=== PATIENT | female | born 1980 | race Caucasian/White ===

== ENCOUNTER 2024-10-13 16:19 | Emergency (ER) | payer OTHER, SELFPAY ==
[2024-10-13 16:22] VITALS: BP 161/108
[2024-10-13 17:35] VITALS: BMI 25.4
[2024-10-13 17:36] VITALS: BP 135/98
--- NOTE | 2024-10-13 17:39 | ED.GENMED ---
History of Present Illness
General
Chief Complaint: Abnormal Lab Value
Source: patient
Exam Limitations: none
Time Seen by Provider: 10/13/24 17:30
Nursing documentation reviewed up to this point in time: agreed with
History of Present Illness
History of Present Illness:
44-year-old female with no significant past medical history states she saw her PCP 2 days ago and had blood work drawn. She states she has had increased thirst and urination since past 2 months, and in the past 2 weeks had calf cramping, she had
difficulty constipation, mild blurred vision, feels a 'bubble' in her mid chest with increased belching lately, she has been fatigued. She has lost 14 pounds in the past 5 months, 6 pounds since July. She has been eating well and drinking more
than usual. She got the results of her blood work today and she states it showed hemoglobin A1c of 14, she was called by her PCP from [facility] and they discussed starting her on basal insulin for type 2 diabetes but when she
described her symptoms they told her to come here for evaluation.
Past History
Past History
ED Past Medical History: None
ED Past Surgical History: None
Social History
Tobacco: Non-smoker
Alcohol: Occasional
Personal:
Living: with family
Employment: Employed
Review of Systems
Review of Systems
Allergies reviewed?: Yes
All Other Systems: ROS reviewed and negative except as documented in HPI and ROS
Constitutional: Reports fatigue
EENT: Reports other (Mild blurry vision)
ABD/GI: Reports other (Polydipsia)
: Reports other (Polyuria)
Neurological: Reports other (Difficulty concentrating recently)
Phy Exam
Physical Exam
Physical Exam:
GENERAL: No acute distress. A&Ox3.
CONSTITUTIONAL: Afebrile.
EYES: clear, conjunctivae normal
ENMT: moist mucus membranes, Pharynx nl
RESPIRATORY: Regular respirations, nonlabored, lungs clear.
CARDIOVASCULAR: Regular rate and rhythm, no murmurs, no rubs.
GI: Soft, nontender, normal BS
MUSCULOSKELETAL: Moves with ease. Well perfused.
SKIN: Warm, dry, pink
PSYCH: Normal mood and affect. Well kept, interactive and appropriate
NEUROLOGIC: Awake, alert and oriented. No focal neurological deficits
Course
Orders/Labs/Results
Orders:
Orders
10/13/24 17:39
Electrocardiogram (*1) Urgent
Reason for Study: Fatigue / Weakness
EKG- Treatment ONCE
0.9% Sodium Chloride 1000 ml [Nss] 1,000 ml IV BOLUS
10/13/24 18:03
Urinalysis Reflex To Culture Urgent
Date Specimen was Collected: 10/13/24
Time Specimen was Collected: 18:01
Urine Microscopic Reflex Cult Urgent
10/13/24 18:39
Complete Blood Count/With Diff Urgent
Comprehensive Metabolic Panel Urgent
TSH Reflex To Free T4 Urgent
10/13/24 20:14
METFORMIN HCl [Glucophage] 500 mg PO NOW STA
Abnormal Lab Results
10/13/24 10/13/24 10/13/24
18:03 18:39 20:26
Absolute Monos (auto) 0.7 H 10^3/uL
(0.1-0.6)
Absolute Eos (auto) 1.2 H 10^3/uL
(0-0.7)
Eosinophils % 14.3 H %
(0-6)
Creatinine 0.4 L mg/dL
(0.6-1.0)
Glucose 255 H mg/dl
(70-99)
Urine Ketones 3+ A
(Negative)
Urine Bacteria (Reflex) Few A
(Negative)
Urine Glucose 4+ A
(Negative)
Urine Albumin (Reflex) 1+ A
(Neg - Trace)
POC Glucose 196 H mg/dl
(70-99)
10/13/24 18:39
10/13/24 18:39
Vital Signs
Initial and Last Documented VS:
Initial Vital Signs
Temp Pulse Resp BP Pulse Ox
98.9 F 111 18 161/108 100
10/13/24 16:22 10/13/24 16:22 10/13/24 16:22 10/13/24 16:22 10/13/24 16:22
Last Documented Vital Signs
Temp Pulse Resp BP Pulse Ox
98.9 F 100 15 116/90 100
10/13/24 16:22 10/13/24 20:30 10/13/24 20:30 10/13/24 20:24 10/13/24 20:30
MDM/Problems Addressed
Differential Diagnosis Includes:
DM, DKA,
MDM/Problems Addressed:
44-year-old female with no significant past medical history states she saw her PCP 2 days ago and had blood work drawn. She states she has had increased thirst and urination since past 2 months, and in the past 2 weeks had calf cramping, she had
difficulty constipation, mild blurred vision, feels a 'bubble' in her mid chest with increased belching lately, she has been fatigued. She has lost 14 pounds in the past 5 months, 6 pounds since July. She has been eating well and drinking more
than usual. She got the results of her blood work today and she states it showed hemoglobin A1c of 14, she was called by her PCP from [facility] and they discussed starting her on basal insulin for type 2 diabetes but when she
described her symptoms they told her to come here for evaluation.
6:45 PM:
CBC normal
UA: 3+ ketones, 4+ glucose, 1+ albumin otherwise negative
CMP: Glucose 255 otherwise normal
Plan: Start Metformin and contact PCP in a.m.
*EKG
EKG Intrepretation Date: 10/13/24
Interpretation: normal
Heart Rate: 91
Rate: normal
Rhythm: sinus
Plato: normal axis
Interval: normal interval
QRS Pattern: normal QRS
Ischemia: no ischemia
*Critical Care Note
Total Time (30-74mins, 75-104mins- exclusive of procedures): Not Applicable
ED Attending Note
-
Portions of this chart may have been created with voice recognition software.� Occasional wrong word or��sound alike� substitutions may have occurred due to the inherent limitations of voice recognition software.
Discharge Plan
Departure
Patient Disposition: Home (Routine Discharge)
Date of Disposition: 10/13/24
Time of Disposition: 20:15
Patient with high blood pressure during this ER visit?: No
Condition: Good
Discharge Problem:
Diabetes mellitus
Instructions: Metformin, Type 2 diabetes - Discharge instructions
Prescriptions:
New
metformin 500 mg tablet
500 mg PO DAILY Qty: 30 0RF
Referrals:
Teagan Ornelas MD [Family Provider] - Tomorrow
Activity Restrictions/Additional Instructions:
As we discussed, your blood sugar here today was 255.
I sent a prescription to your pharmacy for metformin 500 mg to take daily
Please call your primary doctor tomorrow and discuss plans from here on out
Interventions
Interventions:
*Risk Screen - Suicide Last Done: 10/13/24 16:25
*General Assessment Last Done: 10/13/24 16:25
*Neglect/Abuse Screening Last Done: 10/13/24 21:09
*ED- Fall Risk Assessment Last Done: 10/13/24 21:09
*ED COVID-19 Vaccine History Last Done: 10/13/24 21:09
*Nursing Disposition Last Done: 10/13/24 21:09
Discharge Date and Time
Discharge Date/Time: 10/13/24 21:10
Print Language: POLISH
[2024-10-13] MEDS: NSS 1000 IV (17:57)
[2024-10-13 18:10] LABS: Urine Albumin 1+ (Neg - Trace); Urine Bilirubin Negative (Negative); Urine Character Clear (Clear); Urine Color Yellow; Urine Glucose 4+ (Negative); Urine Ketone 3+ (Negative); Urine Leukocyte Negative (Negative); Urine Nitrite Negative (Negative); Urine Occult Blood Negative (Negative); Urine Specific Gravity 1.025 (<1.030); Urine Urobilinogen Negative (Neg - 1+)
[2024-10-13 18:19] LABS: Urine Bacteria Few (Negative); Urine Red Blood Cell 0-2 /HPF (0-2)
[2024-10-13 18:38] VITALS: BP 106/61
[2024-10-13 18:48] LABS: % Basophils 1.8 % (0-2); % Eosinophils 14.3 % (0-6); % Immature Granulocytes 0.5 % (0-0.5); % Lymphocytes 29.7 % (20.5-51.1); % Monocytes 8.1 % (1.7-9.3); % Neutrophils 45.6 % (42.2-75.2); Absolute Basophils 0.2 10^3/uL (0-0.2); Absolute Eosinophils 1.2 10^3/uL (0-0.7); Absolute Lymphocytes 2.5 10^3/uL (1.2-3.4); Absolute Monocytes 0.7 10^3/uL (0.1-0.6); Absolute Neutrophils 3.9 10^3/uL (1.4-6.5); Hematocrit 44.2 % (37.0-47.0); Hemoglobin 15.6 g/dL (12.0-16.0); Mean Corp Hgb Conc. 35.3 g/dL (33.0-37.0); Mean Corpuscular Hgb 29.6 pg (27.0-31.0); Mean Corpuscular Volume 83.9 fL (81.0-99.0); Mean Platelet Volume 10.2 fL (7.4-10.4); Nucleated Red Blood Cells % 0 %; Platelet Count 339 10^3/uL (130-400); Red Blood Cell Count 5.27 10^6/uL (4.20-5.40); Red Cell Dist. Width 12.2 % (11.5-14.5); White Blood Cell Count 8.4 10^3/uL (4.8-10.8)
[2024-10-13 18:59] LABS: ALT (SGPT) 21 U/L (0-35); AST (SGOT) 20 U/L (14-36); Albumin 4.1 g/dl (3.5-5.0); Alkaline Phosphatase 114 U/L (38-126); Blood Urea Nitrogen 8 mg/dl (7-17); Calcium 9.4 mg/dl (8.4-10.2); Carbon Dioxide 22 mmol/L (22-30); Chloride 105 mmol/L (98-107); Estimated Creatinine Clearance 93 ml/min; Glucose 255 mg/dl (70-99); Potassium 3.8 mmol/L (3.5-5.1); Sodium 136 mmol/L (135-145); Total Bilirubin 0.7 mg/dl (0.2-1.3); Total Protein 6.6 g/dl (6.3-8.2); eGFR > 60.00
[2024-10-13 19:30] LABS: TSH Reflex To Free T4 1.73 uIU/ml (0.47-4.68)
[2024-10-13 20:24] VITALS: BP 116/90
[2024-10-13 20:27] LABS: Glucose - Point of Care 196 mg/dl (70-99)
[2024-10-13] MEDS: GLUCOPHAGE 500 MG PO (20:28)
== END 2024-10-13 21:10 | disposition home or self-care (01) ==
LOC: EMR 16:19
PROVIDERS: Registered Nurse; EMERGENCY PHYSICIAN Emergency Medicine; FAMILY PHYSICIAN Family Medicine
DX: E11.9 Type 2 diabetes mellitus without complications (principal)
CPT/HCPCS: 99284; 96360; 80053; 81003; 81015; 82962; 84443; 85025; 93005

== ENCOUNTER → 2025-03-07 09:36 | Outpatient (REF) | payer OTHER, SELFPAY ==
--- NOTE | 2024-12-06 15:15 | PN.DIAED02 ---
Referral
DSME Class Series Code: [id number]
Referred For: Diabetes Self-Management Training, Medical Nutrition Therapy, Self-Blood Glucose Monitoring, Long-Term Complication Instruction, Accute Complication Instruction, Continuous Glucose Monitoring, Medication management, Insulin
Instruction, Care Coordination, Disease Management
PHI Release Authorization Form Signed: Yes
Demographic
Patient's primary language-: Wolof
Education: College degree
Occupation: Professional
Hours Worked/Week: > 40
Shift: Day
- Social
Primary Support Person: Self & spouse
Primary Care Takers: Self & spouse
Living Arrangements: Self & spouse
- Learning Methods
Preferred Method: Reading
Barriers to Learning: None
Glycemic Control
- Blood Glucose Monitoring Assessment
Date: 10/11/24
Blood glucose monitoring at home: Yes
Monitor Brands: Other ([employer] G7)
Frequency: 4x per day
Time: fasting, before breakfast, after breakfast, before lunch, after lunch, before dinner, after dinner, bedtime, 12 AM, 3 AM
- Ketone Monitoring Assessment
Patient monitoring ketone: No
- Hyperglycemia Assessment
Experiences Hyperglycemia: Yes (2 HOURS POST PRANDIAL TYPICALLY 186)
Frequency: 4-6x per week
- Hypoglycemia Assessment
Patient carries glucose source: Yes
Patient experiences hypoglycemia: Yes
Frequency: 4-6x per week
Treatment: juice, glucose tabs
Time: 12 AM (GLUCOSE JUST UNDER 70), 3 AM
- Blood Glucose Monitoring Results
Source: Other ([employer] CLARITY KHUSHBU)
- Hemoglobin A1c
Date: 10/11/24
A1C Percentage (%): 14
- Antibodies
Date: 11/29/24 (RESULTS PENDING)
Medical History of Diabetes
Family Diabetes History: Unknown
Previous Diabetes Education: Yes
How long ago?: 7-12 mo. ago (FROM PCP AND ENDO- IN OFFICE)
Previous visit with Dietitian: No
Complications/Comorbidity/Specialist: Autoimmune (REYNAUDS), Hyperlipidemia (ROSUVASTATIN 20 MG QD), Metabolic (DIABETES: Metformin ER 500 mg BID, Lantus 18 units HS)
Current Home Medication
- Insulin Management
Patient has access to glucagon: No (provided infor on Gvoke)
- Insulin Types
Lantus
Insulin Injection Site: Abdomen
Administration Type: SoloSTAR
Measures
- Anthropometrics
Height: 5 ft 2 in
Actual Weight: 153 lb
- Blood Pressure / Pulse
Blood pressure: 128/80
Pulse: 106
- Diabetes Management
Medical Management for Diabetes: Complete physical exam (10/29/2024), Dental exam (10/25/2024), Dilated eye exam (11/15/2024), Monofilament testing (10/29/2024), Other (Covid vax: 10/24/2020, 11/14/2020, 06/13/2021)
Self-Care
- Tobacco Usage
Do you now, or have you ever smoked?: Quit more than 1 year ago (quit 10 years ago)
- Alcohol & Drugs Usage
Drinks Alcohol: Yes
Amount/day: Other (5 per year)
- Meals & Dining
Meals & Dining: Patient skips meals: No, Food Intolerance / Allergy: No, Cultural / Quaker Dietary Needs: No
Primary Food Insecticide Sprayer: Self
Primary Hardware Manager: Self
Dining Out Frequency: Never
- Physical Activity
Physical Limitation: No
Patient participates in physical Activity: Yes
Activity Types: Aerobics, Strength training
Duration: 21-30 minutes
Frequency: 3-5x per week
Intensity: Easy
- Self Foot-Care
Foot Problems: None
Performs Self Foot-Exam: No
- Patient-Self Assessment
Diabetes Knowledge: Good
Feelings About Diabetes: Adaptation
General Health: Good
Importance of Health: Extremely
Stress Level: Medium
Diabetes Interferes With:: Nothing
Barriers to Diabetes Management: Nothing
Depression Survey Score: 1
- Diabetes Identification
Carries Diabetes Identification: No
Diabetes Identification Information Provided: Yes
Care Plan
- Education Needs
Patient Education Needs: Diabetes disease process, Chronic complications, Acute complications, Medication, Monitoring, Physical activity, Psychosocial Adjustment, Goal setting & problem solving
- Plan of Care
Plan of Care:
12/06/2024
Met with Sherri today for registration and initiation of Diabetes Self-management. Pt was recommended by her PCP due to New Onset diabetes. She had an appt [facility] on 11/25/2024, antibody tests pending for T1D.
She was feeling frequent thirst, urination, hunger and lethargy, her MD sent her to the ER and her HbA1c was 14%.
She has since changed eating habits and exercising more, HbA1c in November was 10.1%. She is wearing the Dexcom G7 and uses [employer] khushbu. Her time in range is in the 90's and her 25 day EAG is 155 mg/dL. She noted that 2 hours after almost every meal
her glucose is 186 - 200 mg/dL. She also experiences hypoglycemia just under 70 mg/dL over 50% of the week in the middle of the night per her CGM. Discussed hypoglycemia protocol and suggested trying a snack with carb and protein prior to bed to
henley off hypoglycemia. She will take glucose tablets or wait a few minutes and she states it does increase to above 70 mg/dL. She has an appointment pending with the RD.
We discussed the complications of DM, mechanism of action for Metformin and Lantus. Provided resources for medic alert bracelet and glucose pen. We reviewed fasting and 2 hour post prandial glucose goals, TIR goals of 70% or more, importance of
eye and foot exams.
Her recent labs also showed elevated B12 levels, her provider recommended changing her daily supplement of 500 mcg to every other day. I explained that Metformin can deplete B12 levels, continue to monitor with provider. Her additional supplements
are: Multivitamin, calcium, Mg 300 mg QD, Vitamin C 500 mg QD, Vitamin D 50 mcg QD, Vitamin E 100 units QD, and Vitamin K 100 mcg QD. She is also prescribed Fexofenadine-Pseudophed ER 60 -120 mg PRN BID, Meclizine 1-2 25 mg PRN up to TID.
Written materials provided, she will contact our office with any questions or concerns prior to class.
--- NOTE | 2024-12-06 15:42 | PN.DIAED04 ---
Education Record
- Education Record
Class Attended: Other (initial DSME assessment)
Instructor: Nurse Practitioner (RAY Morrison)
Pre-Program Knowledge: Needs review / Assistance
Pre-Test Score (%): 90
Goals
- Goal 1
Being Active: Exercise 30 minutes-5 times per week
Goals To Be Evaluated: Exercise 30 mins-5x/week
- Goal 2
Healthy Eating: Follow meal plan
Goals To Be Evaluated: Follow meal plan
- Goal 3
Monitoring: Other (monitor hypoglycemia in middle of night)
Goals To Be Evaluated: Other
--- NOTE | 2025-03-08 12:17 | PN.DIAED14 ---
This is to notify you that your patient with diabetes, AMAIRANI CONCEPCION ( 1980), has enrolled in our diabetes self-management classes that are being held at [facility].
These classes will include an introduction to diabetes, diet, medication, exercise and prevention of complications. At the end of our class series, you will receive a report of your patient's participation and progress for your records.
Please contact me at the Diabetes Center, , if there is any particular information regarding your patient that might be helpful to me.
Sincerely,
Javid BELL-WIL, [facility]
--- NOTE | 2025-03-08 12:18 | PN.DIAED04 ---
Education Record
- Education Record
Class Attended: Class 1
DSME Class Series Code: [id number]
Instructor: Registered Nurse (Rama Talley RN)
Class Curriculum:
Outpatient Diabetes Education Program:
Class 1 (120 minutes)
Describe the diabetes disease process and treatment options
Diabetes management
Develop personal strategies to promote health and behavior change
Integrate psychosocial adjustment for daily living
Monitor blood glucose and other parameters. Interpret and use the results for self-management decision making
Prevent, detect, and treat acute complications
Class Length (mins): 120
Post-Class 1 Test Score (%): 100
== END ==
LOC: DES 09:36
PROVIDERS: ATTENDING PHYSICIAN Nurse Practitioner Family
DX: E11.65 Type 2 diabetes mellitus with hyperglycemia (principal)
CPT/HCPCS: 99078

== ENCOUNTER → 2025-03-14 08:31 | Outpatient (REF) | payer OTHER, SELFPAY ==
--- NOTE | 2025-03-15 09:34 | PN.DIAED04 ---
Education Record
- Education Record
Class Attended: Class 2
DSME Class Series Code: [id number]
Instructor: Registered Dietitian (Missy Shay, RD, LDN, CDE)
Class Curriculum:
Outpatient Diabetes Education Program:
Class 2 (120 minutes)
Incorporate nutritional management into lifestyle
Understanding nutritional value
Understanding carbohydrate counting
Class Length (mins): 120
== END ==
LOC: DES 08:31
PROVIDERS: ATTENDING PHYSICIAN Nurse Practitioner Family
DX: E11.65 Type 2 diabetes mellitus with hyperglycemia (principal)
CPT/HCPCS: 99078

== ENCOUNTER → 2025-03-21 14:50 | Outpatient (REF) | payer OTHER, SELFPAY ==
--- NOTE | 2025-03-22 14:05 | PN.DIAED04 ---
Education Record
- Education Record
Class Attended: Class 3
DSME Class Series Code: [id number]
Instructor: Registered Dietitian (Missy Shay, RD, LDN, CDE)
Class Curriculum:
Outpatient Diabetes Education Program:
Class 3 (120 minutes)
Incorporate nutritional management into lifestyle
Class Length (mins): 120
Post-Class 2 & 3 Test Score (%): 94
== END ==
LOC: DES 14:50
PROVIDERS: ATTENDING PHYSICIAN Nurse Practitioner Family
DX: E11.65 Type 2 diabetes mellitus with hyperglycemia (principal)
CPT/HCPCS: 99078

== ENCOUNTER → 2025-03-28 09:11 | Outpatient (REF) | payer OTHER, SELFPAY ==
--- NOTE | 2025-03-29 09:25 | PN.DIAED04 ---
Education Record
- Education Record
Class Attended: Class 4
DSME Class Series Code: [id number]
Instructor: Registered Nurse (Rama Talley RN)
Class Curriculum:
Outpatient Diabetes Education Program:
Class 4 (120 minutes)
Develop personal strategies to promote health and behavior change
Incorporate physical activity into lifestyle
Utilize medications safety for maximum therapeutic effectiveness
Understand different medication/insulin mechanism of action
Preparing for travel
Class Length (mins): 120
Post-Class 4 Test Score (%): 100
== END ==
LOC: DES 09:11
PROVIDERS: ATTENDING PHYSICIAN Nurse Practitioner Family
DX: E11.65 Type 2 diabetes mellitus with hyperglycemia (principal)
CPT/HCPCS: 99078